=== PATIENT | male | born 1980 | race Caucasian/White ===

== ENCOUNTER 2017-12-30 19:45 | Emergency (ER) | payer OTHER, MEDICAID ==
[2017-12-30 19:53] VITALS: BP 127/73; PULSE 70; RESP 18; TEMP 97.5; O2SAT 94
--- NOTE | 2017-12-30 20:07 | EDPHY ---
H & P Time Seen by Provider: 12/30/17 19:59 HPI/ROS: CHIEF COMPLAINT: Right elbow and knee injury HISTORY OF PRESENT ILLNESS: Couple hours ago missed a step and fell down injuring his right elbow and knee. No other injuries. REVIEW OF SYSTEMS: No syncope or loss of consciousness PAST MEDICAL HISTORY: Down syndrome, heart disease, hypothyroid. Social history: Here with caregiver who is his medical chart, confirms last tetanus 2008 General Appearance: Alert and conversant, cooperative. Normal range of motion of the right elbow without effusion or restriction in full extension. No bony tenderness. Right knee has some tenderness over the patella and abrasion just inferiorly. Normal range of motion is stable to varus and valgus and negative Jules's. He can walk on it but is limping a little bit. Normal hip and lower extremity and foot. Emergency Department course/MDM: Wound care to the right knee. X-ray of the right knee because of bony tenderness and difficulty walking. Normal right elbow does not have indications for imaging. 2023: X-ray personally interpreted of the right knee is negative. Wound care. Smoking Status: Never smoked Constitutional: Initial Vital Signs Temperature (C) 36.4 C 12/30/17 19:49 Heart Rate 70 12/30/17 19:49 Respiratory Rate 18 12/30/17 19:49 Blood Pressure 127/73 H 12/30/17 19:49 O2 Sat (%) 94 12/30/17 19:49 O2 Delivery Mode Room Air Allergies/Adverse Reactions: No Known Allergies Allergy (Verified 12/30/17 19:51) Home Medications: Medication Instructions Recorded Levothyroxine Sodium [Levothroid] 0 mcg PO 11/03/11 Amlactin 08/16/15 Metamucil 12/30/17 MDM/Departure - MDM Imaging Results: Imaging Impressions Knee X-Ray 12/30/17 20:05 Impression: Negative for fracture. Imaging: I viewed and interpreted images myself - Depart Disposition: Home, Routine, Self-Care Clinical Impression: Abrasion, right knee, initial encounter, Contusion of right knee, initial encounter Condition: Good Instructions: Contusion in Adults (ED), Abrasion (ED) Referrals: AMELIA KRISHNAN [Primary Care Provider] - As per Instructions
== END 2017-12-30 20:35 | disposition home or self-care (01) ==
DX: S80.01XA Contusion of right knee, initial encounter (principal); S80.211A Abrasion, right knee, initial encounter; W10.8XXA Fall (on) (from) other stairs and steps, initial encounter